=== PATIENT | female | born 1985 | race Hispanic/Latino ===

== ENCOUNTER 2025-02-24 12:06 | Observation (INO) | payer BC, OTHER ==
[~2025-02-24] VITALS: Ht 162.6 cm; Wt 81.6 kg
[~2025-02-24 12:06] MED LIST: CREON DR 6,000 U1 EA PO; LOPRESSOR50 MG PO; ULTRAM50 MG PO; XANAX1 MG PO; Z-PAK PO
[2025-02-24 12:40] LABS: BASOPHILS % 0.8 % (0.0-1.0); EOSINOPHILS % 0.5 % (0.0-6.0); LYMPHOCYTES % 31.8 % (18.0-39.1); MONOCYTES % 10.1 % (4.4-11.3); NEUTROPHILS % 56.8 % (38.7-80.0); RED CELL DISTRIBUTION WIDTH 21.1 % (11.7-14.4)
[2025-02-24] MEDS ORDERED: SODIUM CHLORIDE FLUSH 10 ML SYR IV PRN (12:45)
[2025-02-24 12:54] LABS: EST GLOMERULAR FILTRATION RATE 113.0 ML/MIN (>=60)
[2025-02-24 13:01] LABS: CORONAVIRUS COVID-19 AG NEGATIVE (NEGATIVE)
[2025-02-24] MEDS ORDERED: ONDANSETRON HCL INJ 2MG/ML 2ML 2 MG/ML VIAL IV PRN (14:45)
[2025-02-24] MEDS ORDERED: SODIUM CHLORIDE FLUSH 10 ML SYR INJ PRN (14:45)
[2025-02-24] MEDS ORDERED: SODIUM CHLORIDE 0.9% 250ML 250 ML ONE ×2 (15:10→21:11)
[2025-02-24] MEDS: SODIUM CHLORIDE 0.9% 250ML 250 ML IV ONE (15:38)
[2025-02-24 17:00] VITALS: PULSE 72; RESP 16; TEMP 98
[2025-02-24 17:59] VITALS: BP 109/76; PULSE 73; RESP 17; TEMP 98.2; O2SAT 100
[2025-02-24] MEDS ORDERED: DEXTROAMP-AMPHE20 M1 PO (18:55)
[2025-02-24] MEDS: IRON SUCROSE 100 MG in SODIUM CHLORIDE 0.9% 100 ML IV SCH (20:13)
[2025-02-24 23:11] VITALS: BP 113/69; PULSE 71; RESP 18; TEMP 98.5; O2SAT 100
[2025-02-24] MEDS: ALPRAZOLAM 0.5 MG TAB PO PRN (23:33)
[2025-02-25] VITALS: BP 122/76; PULSE 69; RESP 18; TEMP 97.7; O2SAT 100
[2025-02-25 04:00] VITALS: BP 116/79; PULSE 74; RESP 18; TEMP 98.4; O2SAT 100
[2025-02-25 06:15] LABS: BASOPHILS % 0.7 % (0.0-1.0); EOSINOPHILS % 0.6 % (0.0-6.0); LYMPHOCYTES % 28.7 % (18.0-39.1); MONOCYTES % 9.1 % (4.4-11.3); NEUTROPHILS % 60.5 % (38.7-80.0); RED CELL DISTRIBUTION WIDTH 25.0 % (11.7-14.4)
[2025-02-25 06:35] LABS: INR 0.98
[2025-02-25] MEDS: Morphine 4mg INJECTION 4 MG/ML INJ IV PRN (06:35)
[2025-02-25 07:02] LABS: EST GLOMERULAR FILTRATION RATE 115.0 ML/MIN (>=60)
[2025-02-25 07:21] LABS: % IRON SATURATION 48 % (15-50)
[2025-02-25 08:00] VITALS: BP 122/87; PULSE 66; RESP 18; TEMP 98.3; O2SAT 100
[2025-02-25 09:05] VITALS: BP 122/87; PULSE 66; RESP 18; TEMP 98.3; O2SAT 100
[2025-02-25 11:15] LABS: LYMPHOCYTES % (MANUAL) 26 % (19-48); MONOCYTES % (MANUAL) 6 % (3.4-9.0); NEUTROPHILS % (MANUAL) 68 % (40-74)
[2025-02-25 11:16] LABS: PLATELET ESTIMATE ADEQUATE; PLATELET MORPHOLOGY COMMENT NORMAL; RBC MORPHOLOGY COMMENT ABNORMAL
[2025-02-25 12:30] LABS: BASOPHILS % 0.8 % (0.0-1.0); EOSINOPHILS % 0.6 % (0.0-6.0); LYMPHOCYTES % 26.6 % (18.0-39.1); MONOCYTES % 9.3 % (4.4-11.3); NEUTROPHILS % 62.5 % (38.7-80.0); RED CELL DISTRIBUTION WIDTH 24.8 % (11.7-14.4)
[2025-02-25 13:28] VITALS: BP 120/80; PULSE 70; RESP 18; TEMP 98.3; O2SAT 100
[2025-02-25] MEDS: HYDROCODONE/APAP 5MG-325MG TAB PO PRN (14:00)
[2025-02-25 16:25] VITALS: BP 121/86; PULSE 60; RESP 18; TEMP 98.5; O2SAT 100
== END 2025-02-25 16:45 | disposition home or self-care (01) ==
LOC: ER 12:16 → ERHOLD 14:38 → MED/SURG 17:46
PROVIDERS: ADMIT Internal Medicine; ATTEND Internal Medicine
DX: D50.0 Iron deficiency anemia secondary to blood loss (chronic) (principal); N92.0 Excessive and frequent menstruation with regular cycle; Z11.52 Encounter for screening for COVID-19; Z79.899 Other long term (current) drug therapy
CPT/HCPCS: 36415 ×2; 36430; 71045; 80053 ×2; 83540; 84466; 84484; 84702; 85025 ×2; 85379; 85610; 85730; 86850; 86900; 86920; 87426; 93005; 94760; 99284; G0378 ×2; J1756 ×2; J2270; J7050 ×3; P9016